=== PATIENT | female | born 1995 | race American Indian/Alaskan Native ===

== ENCOUNTER 2018-08-25 06:34 | Emergency (ER) | payer MEDICAID, OTHER ==
[2018-08-25] MEDS ORDERED: Sodium Chloride 0.9% 1,000 ML IV ONE (07:37)
--- NOTE | 2018-08-25 07:38 | C.PDOC ---
History Of Present Illness 22 yo female , LNMP 05/10/18 come in for evaluation of low grade fever, bodyaches, malaise, sore throat, nasal congestion gradually developed for past few days. Pt denies high fever, chills, headache, dizziness, drooling, dysphagia, dyspnea, neck pain, CP, SOB, wheezing, abd. pain, V/D, vaginal bleeding or irritation. Time Seen by Provider: 08/25/18 07:21 Chief Complaint (Nursing): Back Pain History Per: Patient Past Medical History Reviewed: Historical Data, Nursing Documentation, Vital Signs Vital Signs: Last Vital Signs Temp 97.8 F 08/25/18 06:43 Pulse 124 H 08/25/18 06:43 Resp 18 08/25/18 06:43 BP 116/74 08/25/18 06:43 Pulse Ox 100 08/25/18 06:43 - Medical History PMH: No Chronic Diseases Surgical History: No Surg Hx Family History: States: No Known Family Hx - Social History Hx Alcohol Use: No Hx Substance Use: No - Immunization History Hx Tetanus Toxoid Vaccination: Yes Hx Influenza Vaccination: No Hx Pneumococcal Vaccination: No Review Of Systems Except As Marked, All Systems Reviewed And Found Negative. Constitutional: Positive for: Malaise. Negative for: Fever, Chills ENT: Positive for: Nose Discharge, Nose Congestion, Throat Pain. Negative for: Ear Discharge, Throat Swelling Cardiovascular: Negative for: Chest Pain, Palpitations Respiratory: Positive for: Cough. Negative for: Shortness of Breath, Sputum, Wheezing Gastrointestinal: Negative for: Nausea, Vomiting, Abdominal Pain, Diarrhea Genitourinary: Negative for: Dysuria, Vaginal Bleeding Musculoskeletal: Negative for: Back Pain Skin: Negative for: Rash Neurological: Negative for: Altered Mental Status Physical Exam - Physical Exam Appears: Well, Non-toxic, No Acute Distress Skin: Normal Color, Warm, Dry Head: Normacephalic Eye(s): bilateral: PERRL Nose: No Flaring, Discharge (clear B/L, scant) Oral Mucosa: Moist, No Drooling Throat: Erythema (mild), No Exudate, No Drooling Neck: Trachea Midline, Supple Cardiovascular: Rhythm Regular, No Murmur Respiratory: No Decreased Breath Sounds, No Accessory Muscle Use, No Stridor, No Wheezing Gastrointestinal/Abdominal: Soft, No Tenderness, No Distention, No Guarding Back: No CVA Tenderness Extremity: Normal ROM, No Deformity, No Swelling Neurological/Psych: Oriented x3, Normal Speech ED Course And Treatment - Laboratory Results Result Diagrams: 08/25/18 07:42 08/25/18 07:42 Urine POC: Positive O2 Sat by Pulse Oximetry: 100 Pulse Ox Interpretation: Normal Progress Note: Pt was OBS in ED for 3 hrs and repors mod improvement in sx. On re-eval, pt is afebrile, hemodynamicaly stable. NOn-toxic. Tolerate Po well in ED. Neck: Supple, (-) meningeal sign. ENT: No acute findings. Lungs: CTA B/L, BS euqal B/L. ABd: benign, (-) guarding, (-) rebound. Back: (-) CVA tenderness. Blood work review, mild leukocytosis noted with left shift. UA (+) nitrate. Ucx- pending. Pt received Rocephin empirically now. Pt advised on course of ds. Ref. to F/u with OB in 1-2 days for re-evaluation. return to ED at any time if any worsening or new changes Disposition Counseled Patient/Family Regarding: Studies Performed, Diagnosis, Need For Followup, Rx Given - [facility] Disposition: HOME/ ROUTINE Disposition Time: 09:00 Condition: STABLE Additional Instructions: Encourage fluids Take medication as prescribed Follow up with OB in 2-3 days for re-evaluation If any worsening or new changes-return to ED immediately for re-evaluation Prescriptions: Cefdinir [Omnicef] 300 mg PO BID #20 cap Instructions: Urinary Tract Infections in Adults, - The Fourth Month Forms: [employer] ([place]ian) - Clinical Impression Clinical Impression: UTI in
[2018-08-25] MEDS ORDERED: Sodium Chloride 0.9% 1,000 ML ONE (07:45)
[2018-08-25 07:47] LABS: BASO % 0.3 % (0.0-2.0); EOS % 0.2 % (0.0-4.0); HEMOGLOBIN 11.9 g/dL (11.0-16.0); LYMPH # 1.2 K/uL (1.0-4.3); LYMPH % 10.7 % (20.0-40.0); MEAN CORPUSCULAR HEMOGLOBIN 28.7 pg (27.0-31.0); MEAN CORPUSCULAR HGB CONC 35.1 g/dL (33.0-37.0); MEAN PLATELET VOLUME 7.9 fL (7.2-11.7); MONO # 1.3 K/uL (0.0-0.8); NEUT # 8.5 K/uL (1.8-7.0); NEUT % 76.8 % (50.0-75.0); RBC 4.14 Mil/uL (3.80-5.20); RED CELL DISTRIBUTION WIDTH 13.7 % (11.5-14.5); WHITE BLOOD COUNT 11.1 K/uL (4.8-10.8)
[2018-08-25 07:48] LABS: MEAN CELL VOLUME 81.7 fL (81.0-99.0)
[2018-08-25 07:52] LABS: URINE BILIRUBIN NEGATIVE (NEGATIVE); URINE CLARITY Hazy (Clear); URINE COLOR AMBER (YELLOW); URINE GLUCOSE (UA) Normal (Normal)
[2018-08-25 07:53] LABS: URINE BLOOD NEGATIVE (NEGATIVE); URINE LEUKOCYTE ESTERASE 3+ Leu/uL (Negative); URINE PROTEIN 2+ mg/dL (NEGATIVE)
[2018-08-25 07:54] LABS: SQUAMOUS EPITHIAL 14 /hpf (0-5); URINE BACTERIA MANY (<OCC)
[2018-08-25 08:00] LABS: BLOOD UREA NITROGEN 6 mg/dL (7-17); GFR NON-AFRICAN AMERICAN > 60
[2018-08-25 08:01] LABS: CALCIUM 9.3 mg/dl (8.6-10.4)
[2018-08-25 09:05] VITALS: BP 103/63; PULSE 83; RESP 20; TEMP 99
[2018-08-25 09:21] VITALS: O2SAT 100
== END 2018-08-25 09:55 | disposition home or self-care (01) ==
LOC: C.ER 06:34
DX: O23.40 Unspecified infection of urinary tract in pregnancy, unspecified trimester (principal); Z3A.00 Weeks of gestation of pregnancy not specified
CPT/HCPCS: 80048; 81001; 81025; 84702; 85025; 87086; 87804; 96365; 96375; 99285; J0696; J2405; J7030